=== PATIENT | female | born 1960 | race Caucasian/White ===

== ENCOUNTER → 2024-11-21 13:41 | Outpatient (REF) | payer OTHER, SELFPAY | LOC: HWWDC 13:41 | PROVIDERS: ATTENDING PHYSICIAN Internal Medicine | DX: Z12.31 Encounter for screening mammogram for malignant neoplasm of breast (principal) | CPT/HCPCS: 77063; 77067 ==

== ENCOUNTER → 2025-10-08 11:06 | Outpatient (REF) | payer OTHER, SELFPAY | LOC: PAVMRI 11:06 | PROVIDERS: ATTENDING PHYSICIAN Internal Medicine; FAMILY PHYSICIAN Internal Medicine | DX: M25.561 Pain in right knee (principal) | CPT/HCPCS: 73721 ==